=== PATIENT | female | born 1995 | race Two or more races ===

== ENCOUNTER 2019-12-31 20:57 | Emergency (ER) | payer BC, OTHER ==
[~2019-12-31] VITALS: Ht 165.1 cm; Wt 49.9 kg
--- NOTE | 2019-12-31 21:10 | NUR ---
GREGORY FOR EVALUATION OF SYNCOPAL EPISDOE AT HOME. PER PARENTS; PT WAS FOUND IN HER BED W/ AN EPISDOE OF ALOC WHICH APROXIMATELY TOOK 5 MIN AND THE PT RETURNED BACK TO HER NORMAL STATUS. CURRENTLY PT A, OX 3 BUT DOES NOT REMEMBER WHAT HAPPENED. PT WAS PLACED ON A MONITOR . VSS. WILL CONT TO MONITOR ,
--- NOTE | 2019-12-31 21:17 | NUR ---
HI: [phone] MOTHER RAMBO: [phone] FATHER
--- NOTE | 2019-12-31 21:18 | NUR ---
DR ARIAS AT THE BED SIDEE SPEAKING TO THE PARENTS
[2019-12-31] MEDS ORDERED: IV NS 0.9% 1,000 ML BAG IV ONE (21:30)
[2019-12-31 21:46] LABS: BASOPHILS # (AUTO) 0.1 /CMM (0.0-0.2); BASOPHILS % (AUTO) 0.7 % (0.0-2.0); EOSINOPHILS % (AUTO) 4.1 % (0.0-6.0); HEMATOCRIT 37 % (33-45); HEMOGLOBIN 11.9 g/dL (11.5-14.8); LYMPHOCYTES # (AUTO) 1.6 /CMM (0.8-4.8); LYMPHOCYTES % (AUTO) 21.6 % (20.0-44.0); MEAN CORPUSCULAR HGB CONC 33 g/dl (31.0-36.0); MEAN CORPUSCULAR VOLUME 81 fL (82-100); MONOCYTES # (AUTO) 0.5 /CMM (0.1-1.30); MONOCYTES % (AUTO) 7.5 % (2.0-12.0); NEUTROPHILS # (AUTO) 4.8 /CMM (1.8-8.9); NEUTROPHILS % (AUTO) 66.1 % (43.0-81.0); PLATELET COUNT (AUTO) 314 /CMM (150-450); RED BLOOD CELL COUNT(AUTO) 4.51 MIL/uL (4.0-5.2); WHITE BLOOD COUNT (AUTO) 7.3 K/uL (4.3-11.0)
--- NOTE | 2019-12-31 21:52 | NUR ---
PT WAS PICKED UP FOR CT
[2019-12-31 22:06] LABS: CALCIUM, SERUM 8.8 mg/dL (8.5-10.1); CARBON DIOXIDE 23 mmol/L (21-32); CHLORIDE 101 mmol/L (98-107); CREATININE 1.1 mg/dL (0.6-1.3); GLUCOSE 120 mg/dL (74-106); POTASSIUM 3.5 mmol/L (3.5-5.1); SODIUM SERUM 135 mmol/L (136-145); UREA NITROGEN, BLOOD 9 mg/dL (7-18)
--- NOTE | 2019-12-31 22:35 | NUR ---
AT THE BED SIDE
[2019-12-31 22:44] VITALS: BP 108/76
--- NOTE | 2019-12-31 23:32 | NUR ---
IV removed. Catheter intact and site benign. Pressure and 4x4 applied to site. No bleeding noted. Patient discharged to home in stable condition. Written and verbal after care instructions given. Patient verbalizes understanding of instruction.
== END 2019-12-31 23:32 | disposition home or self-care (01) ==
LOC: ER 20:59
DX: R55 Syncope and collapse (principal); E86.0 Dehydration; J45.909 Unspecified asthma, uncomplicated; F41.9 Anxiety disorder, unspecified; F32.9 Major depressive disorder, single episode, unspecified; Z98.890 Other specified postprocedural states; Z88.2 Allergy status to sulfonamides
CPT/HCPCS: 36415; 70450; 71045; 80048; 80305; 80307; 84484; 85025; 85730; 93005; 96360; 99285; J7030; G0480